=== PATIENT | female | born 1990 | race African-American/Black ===

== ENCOUNTER 2016-08-24 08:35 | Emergency (ER) | payer OTHER ==
[~2016-08-24] VITALS: Ht 152.4 cm; Wt 61.0 kg
[~2016-08-24 08:35] MED LIST: ALBUTEROL SULF8.5 GM IH; AMOX TR-K CLV1 EAC4 PO; AUGMENTIN875 MG PO; BENADRYL25 MG PO; BENTYL10 MG PO; BENTYL20 MG PO; BUTALB-APAP-CA1 EACH PO; CIPROFLOXACIN250 MG PO; CITALOPRAM HBR10 MG PO; FLAGYL500 MG PO; HYDROXYZINE PAM25 MG PO; IBUPROFEN800 MG PO; KEFLEX500 MG PO; LABETALOL HCL200 MG PO; LEVOFLOXACIN500 MG PO; MOTRIN800 MG PO; NAPROSYN500 MG PO; NAPROXEN SODIU550 MG; NOHOMEMEDS; ONDANSETRON HCL8 MG PO; PEN-VEE K,VEET500 MG PO; PEPTO BISMOL240 ML PO; PERCOCET 5/31 TABLET PO; PROCTOFOAM-HC10 GM PR; PYRIDIUM200 MG PO; SPRINTEC1 EACH PO; TRAZODONE HCL50 MG PO; ULTRACET1 TABLET PO; ULTRAM50 MG PO; VALIUM5 MG; VALTREX50 MG/ML PO; VIBRAMYCIN100 MG PO
[2016-08-24] MEDS ORDERED: NEURONTIN600 MG PO (08:50)
[2016-08-24 11:00] VITALS: BP 115/83
== END 2016-08-24 11:01 | disposition home or self-care (01) ==
LOC: EME 08:35
DX: J06.9 Acute upper respiratory infection, unspecified (principal)
CPT/HCPCS: 87651 90; 99281; 99283